=== PATIENT | female | born 1970 | race Caucasian/White ===

== ENCOUNTER 2021-04-11 12:05 | Emergency (ER) | payer MEDICARE ==
[2021-04-11 13:16] LABS: HEMOGLOBIN 14.4 gm/dl (12.3-15.3); RED BLOOD COUNT 4.87 M/UL (4.00-5.10); WHITE BLOOD COUNT 9.1 K/UL (4.5-11.0)
[2021-04-11 13:36] LABS: BUN/CREATININE RATIO 33 (0-10)
[2021-04-11] MEDS ORDERED: IBUPROFEN600 MG PO (14:54)
== END 2021-04-11 15:05 | disposition home or self-care (01) ==
LOC: ER1 12:05
PROVIDERS: Physician Assistant
DX: K80.20 Calculus of gallbladder without cholecystitis without obstruction (principal); E78.5 Hyperlipidemia, unspecified; I10 Essential (primary) hypertension
CPT/HCPCS: 80053; 81001; 83690; 84703; 85025; 99284; Q9967

== ENCOUNTER → 2021-05-04 | Outpatient (CLI) | payer MEDICARE ==
[~2021-05-04] MED LIST: ALEVE220 MG PO; ARMOUR THYROID120 MG PO; CELEBREX200 MG PO; HYDROCHLOROTHIA50 MG PO; IBUPROFEN600 MG PO; LISINOPRIL20 MG PO; METFORMIN HCL500 MG PO; MULTI-VITAMIN1 EACH PO; TYLENOL EXTRA500 MG PO
[2021-05-04 09:30] LABS: BUN/CREATININE RATIO 30 (0-10)
== END ==
LOC: OPSV2 08:00
PROVIDERS: Anesthesiology
DX: Z01.818 Encounter for other preprocedural examination (principal); K80.50 Calculus of bile duct without cholangitis or cholecystitis without obstruction; I10 Essential (primary) hypertension; E11.9 Type 2 diabetes mellitus without complications
CPT/HCPCS: 80048; 93005

== ENCOUNTER → 2021-05-10 | Day surgery (SDC) | payer MEDICARE ==
[~2021-05-10] MED LIST changes: +HYDROCODON-ACE1 EAC4 PO
== END | disposition home or self-care (01) ==
LOC: OR 06:43
DX: K80.64 Calculus of gallbladder and bile duct with chronic cholecystitis without obstruction (principal); I10 Essential (primary) hypertension; E78.5 Hyperlipidemia, unspecified; K21.9 Gastro-esophageal reflux disease without esophagitis; M19.071 Primary osteoarthritis, right ankle and foot; M17.11 Unilateral primary osteoarthritis, right knee; D64.9 Anemia, unspecified; E11.9 Type 2 diabetes mellitus without complications; E03.9 Hypothyroidism, unspecified; Z79.1 Long term (current) use of non-steroidal anti-inflammatories (NSAID); Z79.82 Long term (current) use of aspirin; Z79.84 Long term (current) use of oral hypoglycemic drugs; Z79.891 Long term (current) use of opiate analgesic; Z79.899 Other long term (current) drug therapy
CPT/HCPCS: 82962; 84703; C1729; J0690; J1170; J1885; J2250; J2270; J2405; J3010; J7030; J7120